=== PATIENT | male | born 1955 | race Caucasian/White ===

== ENCOUNTER 2016-09-20 11:54 | Day surgery (SDC) | payer BC ==
[~2016-09-20 11:54] MED LIST: RINGERS SOLUTION,LACTATED 1,000 ML IV PRN
--- OUTSIDE RECORDS SUMMARY | 2016-09-20 11:58 | XMS REPORT | Continuity of Care Document ---
:1955 Author Organization [facility] ([facility]) Address [address] [place] [address] Phone [phone] Care Team Providers Name Role Phone Enrique Kramer Primary Care Provider [phone] Source Comments This disclosure is being made pursuant to the Care Everywhere program, applicable federal and state laws, and may not contain all informaitonavailable regarding this patient.[facility] ([facility]) Active Allergies and Adverse Reactions No Known Allergies Current Medications Prescription Sig. Disp. Refills Start Date End Date Status glucosamine-chondroi 09/13/2013 Active tin 250-200 mg per tablet DOCOSAHEXANOIC Take by mouth Active ACID/EPA (FISH OIL daily. PO) esomeprazole 40 mg Take 40 mg by 08/17/2016 Active EC capsule mouth daily. diltiaZEM 180 mg ER Take 180 mg 07/13/2016 Active capsule by mouth daily. aspirin 325 mg EC Take 325 mg Active tablet by mouth daily. ferrous sulfate 325 Take 325 mg Active mg (65 mg iron) by mouth 3 tablet times daily. omega-3 fatty acids Take 2 g by Active 1 gram capsule mouth 2 times daily. nabumetone 500 mg take 1 tablet 05/23/2014 Discontinued tablet by oral route 7 2 times every day esomeprazole 20 mg take 1 08/16/2013 Discontinued EC capsule capsule by 7 oral route every day dabigatran (praDAXA) take 1 180 capsule 4 08/19/2015 Discontinued 150 mg capsule capsule by 7 oral route 2 times every day clobetasol 0.05 % as needed. 11/18/2015 Discontinued cream 7 diltiazem 120 mg ER Take 120 mg 11/17/2015 Discontinued capsule by mouth 7 daily. mupirocin 2 % as needed. 11/18/2015 Discontinued ointment 7 furosemide 40 mg Take 1 tablet 90 tablet 3 01/22/2016 Discontinued tablet (40 mg total) 7 by mouth daily. Active Problems Problem Noted Date HARE (dyspnea on exertion) 01/22/2016 Obesity (BMI 30-39.9) 08/19/2015 Atrial fibrillation Overview: Formatting of this note may be different from the original. CARDIOVASCULAR PROCEDURES ECHO/MUGA: Echo (1. Borderline LV systolic function. Normal wall motion when PVC's are excluded. 2. AF noted during echo exam 3. Mild LAE 4. Trace AI) - 06/06/2014 Echo: LV Ejection Fraction=55% (based on Biplane Method of Discs). Normal left ventricular wall motion PA systolic pressure estimate=35mmHg. No hemodynamically significant valvular aortic stenosis by doppler A normal IVC diameter which collapses greater than 50% would support an normal RA pressure of 3 mmHg (range 0-5mmHg). 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 Temperature - - Respiratory Rate - - Height 1.829 m (6' 0.01") 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 Weight 126.1 kg (278 lb) 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 Body Mass Index 37.7 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 Oxygen Saturation - - Plan of Care Date Type Specialty Providers Description 03/01/2017 Appointment Heart and Vascular Bryanna Wild MD Chief Comp: Patient [address] [place] [address] Visit [phone] (Fax) Health Maintenance Due Date Last Done Comments HCV Screening 1955 Hepatitis B Vaccine (1 of 3 - Primary Series) 1955 Tdap Vaccine 1965 Lipid Disorder Screening 1972 Td Vaccine 1972 Pneumococcal Vaccine (1 of 1 - PPSV23) 1973 Colonoscopy 05/26/2004 Prostate Cancer Screening 2004 Zoster Vaccine 2014 Influenza Vaccine: Seasonal (#1) 03/08/2016 Results from Last 3 Months Not on file
[2016-09-20] MEDS ORDERED: PANTOPRAZOLE SODIUM 40 MG in NORMAL SALINE 100 ML IV ONE (14:45)
[2016-09-20] MEDS ORDERED: PANTOPRAZOLE SODIUM 40 MG/100 ML PIGGYBACK IV ONE (14:45)
[2016-09-20 15:28] VITALS: BP 143/80
--- NOTE | 2016-09-21 10:05 | OR ---
Operative Report - Dictated Report Narrative: Operative Report Date of operation: 09/20/2016 Preoperative diagnosis: Rectal bleeding. No recent dedicated colon studies. GERD symptoms and dysphagia for solid foods. Postoperative diagnosis: Probable rectal cancer (pathology pending). Hiatal hernia and gastropathy (pathology and CLOtest pending) Operation: EGD with biopsies. Colonoscopy with biopsy of rectal tumor Surgeon: Dr Bassett Anesthesia: LATONYA MOJICA CRNA Indications for procedure: The patient is a 61-year-old male referred by Dr. Kramer. The patient has had bright red rectal bleeding for over one year with anemia. He has a history of GERD symptoms with a past esophageal dilation. His dysphagia for solid foods has increased. Findings: Probable rectal cancer (pathology pending). Hiatal hernia, significant gastropathy (pathology and CLOtest pending) Narrative of procedure: The patient was identified preoperatively, and prior to the administration of anesthetic a multidisciplinary timeout was observed EGD: With the patient in the recumbent position, a bite-block was placed, intravenous sedation was administered, and the patient's eyes covered with a towel. The flexible fiberoptic gastroscope was advanced into the posterior pharynx which appeared normal. The supraglottic larynx appeared normal. The cords appeared normal, moved well, and opposed in the midline. The scope was advanced under direct vision into the proximal esophagus which appeared normal. The esophagus appeared freely distensible with normal mucosa. The esophageal mucosa appeared normal down to the gastroesophageal junction which was inflamed with a sliding hiatal hernia. The GE junction appeared normally distensible. The scope was advanced into the stomach proper which was insufflated with air. Immediately apparent was a chronic luis gastropathy with fundic polyp formation. There were streaks of inflammation on prepyloric folds with evidence of chronic low-grade bleeding. No génesis ulcerations or neoplastic lesions were appreciated including a retroflexed view of the gastric fundus. The scope was redirected toward the pylorus. The scope was advanced into the duodenal bulb which appeared normal. The scope was advanced further to the horizontal portion of the duodenum which appeared normal, specifically the villous architecture appeared well preserved and clear bile was present. The scope was slowly withdrawn through the duodenal bulb with confirmation that no active ulcer was present. The scope was withdrawn into the stomach and sales representative education courses biopsies of gastric mucosa obtained for CLOtest and pathology. The biopsy sites were seen to be hemostatic. The insufflated air was removed, the scope withdrawn from the patient, and this portion of the procedure terminated. COLONOSCOPY: The patient was then placed in the left lateral position, and the perineum was inspected. There was no evidence of pilonidal disease or skin breakdown. The external appearance of the anus was normal. Sphincter tone was good. The flexible fiberoptic colonoscope was inserted into the rectum which was insufflated with air. Immediately apparent was a large ulcerated lesion at approximately 10 cm. The rectal mucosa and submucosal vascular pattern appeared otherwise normal, the prep was seen to be complete. The scope was advanced through the sigmoid colon, up the descending colon, and around the splenic flexure where the triangular haustral architecture of the transverse colon was seen. The scope was advanced across the transverse colon, around the hepatic flexure to the cecum. Despite standard reduction maneuvers and gentle external manual compression on the abdomen the true apex of the cecum and ileocecal valve were not directly visualized however the small bowel effluent appeared clear. The mucosa at this level appeared normal. The scope was then slowly withdrawn in a circular fashion so that all aspects of colonic mucosa were inspected. The colon was normal in course and caliber. The haustral architecture appeared well preserved throughout with no evidence of external compression. The mucosa and submucosal vascular pattern appeared normal, specifically there was no gross evidence to suggest colitis or inflammatory bowel disease and no AV malformations were seen. No génesis diverticulosis was demonstrated. No proximal polyps were encountered. The scope was gradually withdrawn to the level of the rectum. The tumor was biopsied and multiple sample submitted. The area appeared hemostatic. As much insufflated air as possible was removed. The scope was withdrawn from the patient and the procedure terminated. The patient tolerated the anesthetic and procedure well without complication and was transferred back to the ambulatory surgery area awake and in stable condition. The patient remained stable throughout a period of postoperative observation. He denied abdominal discomfort, was able to tolerate by mouth intake, and was up without assistance. I shared the operative findings with the patient and his and he was given copies of the photographs which appear in the medical record. He was discharged home with instructions not to engage in hazardous activity today, but may resume normal activity tomorrow, and advance diet as tolerated. He is to continue those medications as listed in the history and physical exam. I explained the findings to him and his , and I made arrangements for an office appointment on 09/22/2016 to further discuss the final biopsy results and plan further treatment. Reviewed and electronically signed
== END 2016-09-20 11:55 | disposition home or self-care (01) ==
LOC: AMB 11:54
PROVIDERS: ATTEND Surgery
PROC: 0DB68ZX Excision of Stomach, Via Natural or Artificial Opening Endoscopic, Diagnostic (ICD-10-PCS; principal; 2016-09-20 13:30)
PROC: 0DBP8ZX Excision of Rectum, Via Natural or Artificial Opening Endoscopic, Diagnostic (ICD-10-PCS; 2016-09-20 13:30)
DX: C20 Malignant neoplasm of rectum (principal); K29.70 Gastritis, unspecified, without bleeding; K44.9 Diaphragmatic hernia without obstruction or gangrene; K21.9 Gastro-esophageal reflux disease without esophagitis; I48.91 Unspecified atrial fibrillation; I10 Essential (primary) hypertension; Z68.39 Body mass index [BMI] 39.0-39.9, adult